=== PATIENT | female | born 1940 | race Caucasian/White ===

== ENCOUNTER 2017-10-09 20:18 | Emergency (ER) | payer MEDICARE ==
[~2017-10-09 20:18] MED LIST: ALLO300T2 PO; CARB-101 PO; HYDR25TA PO; LINA290C PO; LORA0.5T2 PO; LOSA100T29 PO; MECL-111 PO; METO25TA6 PO; QUET100T70 PO; ROPI1TAB11 PO; TRAZ-187 PO; TYL3 PO
[2017-10-09] MEDS ORDERED: ACETAMINOPHEN-CODEINE 300/30MG TAB ONE (20:59)
[2017-10-09] MEDS ORDERED: TETANUS/DIPHTHERIA TOXOID [ADULT] 0.5 ML VIAL IM ONE (20:59)
== END 2017-10-09 22:28 | disposition home or self-care (01) ==
LOC: EDH 20:18
DX: S50.02XA Contusion of left elbow, initial encounter (principal); I25.10 Atherosclerotic heart disease of native coronary artery without angina pectoris; G20 Parkinson's disease; I10 Essential (primary) hypertension; E78.5 Hyperlipidemia, unspecified; E11.9 Type 2 diabetes mellitus without complications; W10.8XXA Fall (on) (from) other stairs and steps, initial encounter; Y93.01 Activity, walking, marching and hiking; Y92.89 Other specified places as the place of occurrence of the external cause; Y99.8 Other external cause status
CPT/HCPCS: 73080; 90471; 90714

== ENCOUNTER → 2018-05-12 | Outpatient (CLI) | payer MEDICARE ==
[~2018-05-12] MED LIST changes: -LOSA100T29 PO; +LOSA100T58 PO
== END | disposition home or self-care (01) ==
LOC: RAH 16:03
PROVIDERS: ATTEND Internal Medicine
DX: M47.815 Spondylosis without myelopathy or radiculopathy, thoracolumbar region (principal); K59.00 Constipation, unspecified
CPT/HCPCS: 74018

== ENCOUNTER → 2018-09-02 | Outpatient (CLI) | payer MEDICARE | END | disposition home or self-care (01) | LOC: SHCH 13:04 | PROVIDERS: ATTEND Internal Medicine Cardiovascular Disease | DX: I65.23 Occlusion and stenosis of bilateral carotid arteries (principal); I51.7 Cardiomegaly; I35.8 Other nonrheumatic aortic valve disorders | CPT/HCPCS: 93306; 93880 ==

== ENCOUNTER → 2018-09-09 | Outpatient (CLI) | payer MEDICARE ==
[~2018-09-09] VITALS: Ht 152.4 cm; Wt 62.6 kg
[~2018-09-09] MED LIST changes: +REGADENOSON 0.4 MG/5 ML PF SYG IVP SCH
== END | disposition home or self-care (01) ==
LOC: SHCH 10:00
PROVIDERS: ATTEND Internal Medicine Cardiovascular Disease
DX: R06.00 Dyspnea, unspecified (principal); R07.89 Other chest pain
CPT/HCPCS: 78452; 93017; 96374; A9500 ×2; J2785

== ENCOUNTER → 2018-12-03 | Outpatient (CLI) | payer MEDICARE ==
[~2018-12-03] MED LIST changes: -REGADENOSON 0.4 MG/5 ML PF SYG IVP SCH
== END | disposition home or self-care (01) ==
LOC: RAH 11:12
PROVIDERS: ATTEND Psychiatry & Neurology Neurology
DX: G31.89 Other specified degenerative diseases of nervous system (principal); R90.82 White matter disease, unspecified
CPT/HCPCS: 70450

== ENCOUNTER 2019-12-10 23:30 | Inpatient (IN) | payer MEDICARE ==
[~2019-12-10 23:30] MED LIST changes: -MECL-111 PO; +MECL-160 PO; +QUET100T33 PO; -QUET100T70 PO; -ROPI1TAB11 PO; +ROPI1TAB13 PO
[2019-12-10] MEDS ORDERED: ONDANSETRON HCL 4 MG/2 ML VIAL ONE (23:44)
[2019-12-10] MEDS ORDERED: MORPHINE SULFATE 2 MG/ML 1ML SYG ONE (23:44)
[2019-12-11] MEDS ORDERED: MORPHINE SULFATE 4 MG/1ML SYG ONE ×2 (02:10→06:16)
[2019-12-11] MEDS ORDERED: ONDANSETRON HCL 4 MG/2 ML VIAL ONE (02:10)
[2019-12-11] MEDS ORDERED: FAMOTIDINE/PF 20 MG/2 ML VIAL IV ONE ×2 (02:10→09:32)
[2019-12-11] MEDS ORDERED: NITROGLYCERIN 0.4 MG SL TAB SL PRN (05:00)
[2019-12-11] MEDS ORDERED: MORPHINE SULFATE 4 MG/1ML SYG IV PRN (05:00)
[2019-12-11] MEDS ORDERED: MAG HYDROX/AL HYDROX/SIMETH 30 ML, LIDOCAINE HCL 2% VISCOUS 30 ML, DIPHENHYDRAMINE HCL ... PO PRN ×3 (05:00)
[2019-12-11] MEDS ORDERED: DIPHENHYDRAMINE HCL 25 MG CAPSULE PO PRN (05:00)
[2019-12-11] MEDS ORDERED: GUAIFENESIN-DM 200/20 MG 10 ML PO PRN (05:00)
[2019-12-11] MEDS ORDERED: ACETAMINOPHEN 325 MG TAB PO PRN ×2 (05:00)
[2019-12-11] MEDS ORDERED: ZOLPIDEM TARTRATE 5 MG TAB PO PRN (05:00)
[2019-12-11] MEDS ORDERED: DiphenhydrAMINE HCL 50 MG/ML VIAL IV PRN (05:00)
[2019-12-11] MEDS ORDERED: MAG HYDROX/AL HYDROX/SIMETH ES 30 ML SUSP UDCUP PO PRN (05:00)
[2019-12-11] MEDS ORDERED: LACTULOSE 20 GM/30 ML UDCUP PO PRN (05:00)
[2019-12-11] MEDS ORDERED: MORPHINE SULFATE 2 MG/ML 1ML SYG IV PRN (05:00)
[2019-12-11] MEDS: INSULIN HUMULIN R 100 UNIT/ML 3ML SQ SCH ×4 (07:30→22:26)
[2019-12-11] MEDS: FAMOTIDINE/PF 20 MG/2 ML VIAL IV SCH (09:00)
[2019-12-11] MEDS ORDERED: ACETAMINOPHEN 325 MG TAB ONE (10:41)
[2019-12-11 11:14] LABS: ALBUMIN 3.4 g/dL (3.5-5.0); BILIRUBIN,TOTAL 0.6 mg/dL (0.2-1.0); CREATININE 0.9 mg/dL (0.5-1.5); POTASSIUM 4.5 mmol/L (3.5-5.1); THYROID STIMULATING HORMONE 6.22 uIU/mL (0.36-3.74); TOTAL PROTEIN, SERUM 6.8 g/dL (6.0-8.3)
[2019-12-11] MEDS ORDERED: PROM12.513 PO (12:53)
[2019-12-11] MEDS ORDERED: CARB1TAB20 PO (12:53)
[2019-12-11] MEDS ORDERED: ZONI25CA14 PO (12:53)
[2019-12-11] MEDS ORDERED: ARIP2TAB20 PO (12:53)
[2019-12-11] MEDS ORDERED: TRAZODONE PO (12:53)
[2019-12-11] MEDS ORDERED: FAMO20TA8 PO (12:53)
--- NOTE | 2019-12-11 13:05 | NUR ---
patient still in ER, awaiting for patient to be transferred to medical floor in order to be able to initiate skilled Physical Therapy Evaluation. Addendum: 12/11/19 at 1306 by DONOVAN GARCIA, PT PT Amended: Links added.
--- NOTE | 2019-12-11 15:40 | NUR ---
cm note call made to patient and no answer. call made to spouse and states resides at home with spouse independent with ambulation and adls. no dme. no home services. informed of md request for snf level of care for rehab, and states that he isnt sure she will agree to snf, but did provide alternate phone # for pt [phone]. cell phone, and should be turning it on soon since he just brought it to her at hospital. will followup with pt. Addendum: 12/11/19 at 1545 by KEMI MC CM Amended: Links added.
[2019-12-11] MEDS: CARBIDOPA-LEVODOPA 25-100 TAB PO SCH ×2 (17:00→21:33)
[2019-12-11 22:01] VITALS: BP 159/76
[2019-12-11] MEDS: METOPROLOL TARTRATE 25 MG TAB PO SCH (22:12)
[2019-12-11] MEDS: HYDROCODONE/ACETAMINOPHEN 5/325 MG TAB PO PRN (22:12)
--- NOTE | 2019-12-11 22:30 | NUR ---
2132 LEFT PATIENT DOOR OPEN TO CLOSELY MONITOR PATIENT. PATIENT STARTED SHAKING AND HAVING ANXIETY STATING SHE GET ANXIOUS BECAUSE SHE HAD NOT RECEIVED HER PILLS FOR THE DAY. EXPLAINED TO PATIENT I HAD HER NIGHT MEDICATIONS WHICH INCLUDED HER SINEMET AND HER BLOOD PRESSURE MEDICATION. SHE STATED SHE ONLY HAD HER SINEMET TWICE TODAY AND THAT SHE NORMALLY TAKES IT AT 9PM ON THE DOT AND GOES TO SLEEP AND WAS WHY SHE WAS SHAKY. THIS NURSE DID EXPLAIN TO HER THAT SHE HAD GOTTEN HER LAST SINEMET AROUND 5PM. PATIENT STATED SHE WAS HAVING SOME PAIN AND DID GIVE HER NORCO AT 2212.
[2019-12-12 00:50] VITALS: BP 157/69
[2019-12-12 04:00] VITALS: BP 165/72
--- NOTE | 2019-12-12 04:49 | NUR ---
PATIENT CALLED OUT STATING HER CATHETER WAS LEAKING. PRINT COLOR MATCHER CHECKED CATHETER AND EXPLAINED THAT IT WAS DRY AND THE CATHETER WAS DRAINING. PATIENT GOT INCREASINGLY UPSET STATING THAT "SHE KNOWS SOMEONE THAT WORKS HERE AND IS GOING TO SAY SOMETHING" SHE ALSO STATED THAT SHE HEARD STAFF SAY THAT SHE "WAS A LIAR". PRINT COLOR MATCHER CLEANED HER UP AND CHANGED BED PAD FOR COMFORT TWO TIMES. PATIENT IS STILL AGGRAVATED AT THIS TIME ALSO STATING THIS NURSE "HAS ONLY BEEN IN ONCE TO SEE HER". WILL TRY TO TALK PATIENT AND SEE IF THERE IS ANYTHING I CAN DO TO COMFORT HER.
[2019-12-12] MEDS ORDERED: METO-391 PO (05:38)
[2019-12-12] MEDS ORDERED: VENL-63 PO (05:38)
[2019-12-12] MEDS: INSULIN HUMULIN R 100 UNIT/ML 3ML SQ SCH ×4 (05:45→20:54)
[2019-12-12] MEDS: HYDROCODONE/ACETAMINOPHEN 5/325 MG TAB PO PRN ×3 (05:45→20:53)
--- NOTE | 2019-12-12 06:15 | NUR ---
SPOKE TO PATIENTS WHO CALLED AND STATED THAT HIS WAS UPSET ABOUT THE CATHETER. EXPLAINED TO THAT THE CATHETER WAS INTACT AND DRAINING CLEAR AND OF ADEQUATE AMOUNT. ALSO EXPLAINED THAT THE INTERNET MARKETER DID CHANGE HER BEDPAD TWICE AND THAT IT WAS DRY. THIS NURSE DID GIVE PAIN MEDICATION TO PATIENT AT 545AM FOR A HEADACHE AND PELVIC PAIN. THIS NURSE ALSO DID GIVE ZOFRAN FOR SOME NAUSEA AROUND 0615 PER PATIENT REQUEST. PATIENT DID APOLOGIZE AND STATED SHE "WAS SORRY IF SHE WAS OUT OF LINE AND US NURSES ARE DOING A GREAT JOB". I DID TALK TO PATIENT AND STATE IF THERE WAS ANYTHING ELSE I COULD DO LET ME KNOW.
[2019-12-12] MEDS: ONDANSETRON HCL 4 MG/2 ML VIAL IV PRN ×2 (06:16→13:21)
[2019-12-12 06:32] LABS: BASOPHILS % (AUTO) 0.5 % (0.0-5.0); EOSINOPHILS % (AUTO) 3.5 % (0.0-8.0); LYMPHOCYTES % (AUTO) 18.5 % (21.0-51.0); MEAN CORPUSCULAR HEMOGLOBIN 29.1 pg (27.0-33.0); MEAN CORPUSCULAR HGB CONC 33.1 g/dL (32.0-36.0); MEAN CORPUSCULAR VOLUME 88.1 fL (79-99); MONOCYTES % (AUTO) 11.2 % (3.0-13.0); NEUTROPHILS % (AUTO) 65.9 % (40.0-77.0); PLATELET COUNT (AUTO) 335 K/uL (130-400); RED BLOOD CELL COUNT(AUTO) 4.77 MIL/uL (4.00-5.50); WHITE BLOOD COUNT (AUTO) 8.3 K/uL (4.8-10.8)
[2019-12-12 07:09] LABS: ALBUMIN 3.3 g/dL (3.5-5.0); BILIRUBIN,TOTAL 0.9 mg/dL (0.2-1.0); CREATININE 0.8 mg/dL (0.5-1.5); POTASSIUM 3.2 mmol/L (3.5-5.1); THYROID STIMULATING HORMONE 3.35 uIU/mL (0.36-3.74); TOTAL PROTEIN, SERUM 6.9 g/dL (6.0-8.3)
[2019-12-12 08:00] VITALS: BP 152/70
[2019-12-12] MEDS: LOSARTAN 100 MG TABLET PO SCH (08:54)
[2019-12-12] MEDS: METOPROLOL TARTRATE 25 MG TAB PO SCH ×2 (08:54→20:53)
[2019-12-12] MEDS: FAMOTIDINE/PF 20 MG/2 ML VIAL IV SCH (08:54)
[2019-12-12] MEDS: CARBIDOPA-LEVODOPA 25-100 TAB PO SCH ×4 (08:54→20:53)
[2019-12-12] MEDS: HYDROCHLOROTHIAZIDE 25 MG TABLET PO SCH (08:54)
[2019-12-12] MEDS: ZONISAMIDE 25 MG PO SCH ×2 (09:00→20:54)
[2019-12-12] MEDS: LORAZEPAM 0.5 MG TABLET PO SCH ×4 (09:00→21:18)
[2019-12-12] MEDS ORDERED: LORAZEPAM 0.5 MG TABLET ONE (09:35)
[2019-12-12 11:26] VITALS: BP 163/90
--- NOTE | 2019-12-12 12:37 | NUR ---
Pt WITH EXTENSIVE ORTHO HX B ESEQUIEL, R SHOULDER SURGERY, LUMBAR FUSION. FALLS AND PD. PT LIVES WITH SPOUSE WHO IS UNABLE TO ASSIST. Pt HAS NEW NON DISPLACED PUBIC RAMI FRACTURE. HIP AND SHOULDERS ARE FRACTURE FREE AND ALL HARDWARE IS IN PLACE PER IMAGING. PT 3WW ROLLATOR AT HOME AND OLD BSC. Pt WILL NEED 2WW, HHPT OR SNF, AND 3-1. Pt ISWBAT TO [facility] . PRE MED PRIOR TO SESSION. HAS RESTING TREMORS BUT IS AOX3. Addendum: 12/12/19 at 1239 by SANDRO MCKEON, PT PT Amended: Links added.
--- NOTE | 2019-12-12 15:24 | NUR ---
CM NOTE spoke to pt regarding snf order and states she wishes to discuss with her spouse may want just HH and will let cm know of her decision,
[2019-12-12 16:00] VITALS: BP 166/89
--- NOTE | 2019-12-12 16:15 | NUR ---
cm note spoke to pt's spouse as per pt request regarding her dc plan, call made to pts spouse and states that after speaking to his , they have decided to go to [facility], due to it is closer to their home. choice letter obtained and referral faxed to [facility]. spoke to Sara pro and states will evaluate pt and let cm know. updated charge nurse on above and need for covid test per [facility] front desk receptionist.
[2019-12-12] MEDS: ARIPIPRAZOLE 2 MG PO SCH (20:53)
[2019-12-12 21:20] VITALS: BP 188/95
[2019-12-13] MEDS ORDERED: HYDRALAZINE HCL 20 MG/ML VIAL IV PRN (00:15)
[2019-12-13 00:22] VITALS: BP 174/99
[2019-12-13] MEDS: HYDROCODONE/ACETAMINOPHEN 5/325 MG TAB PO PRN (02:49)
[2019-12-13 04:09] VITALS: BP 155/85
[2019-12-13] MEDS: ONDANSETRON HCL 4 MG/2 ML VIAL IV PRN ×2 (05:40→08:52)
[2019-12-13] MEDS: INSULIN HUMULIN R 100 UNIT/ML 3ML SQ SCH ×4 (05:41→20:39)
[2019-12-13 06:20] LABS: BASOPHILS % (AUTO) 0.4 % (0.0-5.0); EOSINOPHILS % (AUTO) 3.1 % (0.0-8.0); HEMATOCRIT 46.4 % (36-48); LYMPHOCYTES % (AUTO) 20.3 % (21.0-51.0); MEAN CORPUSCULAR HEMOGLOBIN 28.7 pg (27.0-33.0); MEAN CORPUSCULAR HGB CONC 33.4 g/dL (32.0-36.0); MEAN CORPUSCULAR VOLUME 85.8 fL (79-99); MONOCYTES % (AUTO) 11.7 % (3.0-13.0); PLATELET COUNT (AUTO) 409 K/uL (130-400); RED BLOOD CELL COUNT(AUTO) 5.41 MIL/uL (4.00-5.50); RED CELL DISTRIBUTION WIDTH 13.1 % (11.0-15.5); WHITE BLOOD COUNT (AUTO) 12.1 K/uL (4.8-10.8)
[2019-12-13 06:42] LABS: HEMOGLOBIN A1C 7.1 % (4.0-6.0)
[2019-12-13 07:02] LABS: ALBUMIN 3.8 g/dL (3.5-5.0); POTASSIUM 3.1 mmol/L (3.5-5.1); TOTAL PROTEIN, SERUM 7.8 g/dL (6.0-8.3)
[2019-12-13] MEDS ORDERED: LORAZEPAM 2 MG/ML 1 ML VIAL ONE (08:46)
[2019-12-13] MEDS: METOPROLOL TARTRATE 25 MG TAB PO SCH ×2 (08:50→19:47)
[2019-12-13] MEDS: LOSARTAN 100 MG TABLET PO SCH (09:00)
[2019-12-13] MEDS: LORAZEPAM 0.5 MG TABLET PO SCH ×3 (09:00→19:47)
[2019-12-13] MEDS ORDERED: LIDOCAINE HCL-MPF 1% 2ML VIAL IV PRN (09:30)
[2019-12-13] MEDS ORDERED: POTASSIUM CHLORIDE 20 MEQ ERTAB PO PRN (09:30)
[2019-12-13] MEDS ORDERED: POTASSIUM CHLORIDE 10% ELIXIR 20 MEQ/15 ML UDCUP PO PRN (09:30)
[2019-12-13] MEDS ORDERED: POTASSIUM CHLORIDE 10MEQ/100ML 100 ML IV PRN (09:30)
[2019-12-13] MEDS: FAMOTIDINE/PF 20 MG/2 ML VIAL IV SCH (10:08)
[2019-12-13] MEDS: CARBIDOPA-LEVODOPA 25-100 TAB PO SCH ×4 (10:08→19:47)
[2019-12-13] MEDS: HYDROCHLOROTHIAZIDE 25 MG TABLET PO SCH (10:08)
[2019-12-13] MEDS: ZONISAMIDE 25 MG PO SCH ×2 (10:10→19:48)
[2019-12-13 11:11] LABS: CRP QUANTITATIVE 61.9 mg/L (0.00-9.0)
[2019-12-13 11:30] VITALS: BP 114/46
--- NOTE | 2019-12-13 14:58 | NUR ---
BP control @ 8726-1170 Tech unable to obtain bp by machine, manual cuff performed. See mar for additional meds given. Monitored for safety & efficacy, LINE HAUL DRIVER entered room for moment & let know of patient status, new med ordered & given 0820-240/120 r 115 0830-hydralazine 10mg given 0835- 230/110 0855-ativan 1mg iv, zofran 4mg iv 0900-99/56 p 104 0950 114/46 p 115 94 ra 1400 119/75 p 100 98 ra
[2019-12-13 15:52] VITALS: BP 114/76
[2019-12-13] MEDS: ARIPIPRAZOLE 2 MG PO SCH (19:48)
[2019-12-13 20:00] VITALS: BP 119/64
[2019-12-14] VITALS: BP 114/68
[2019-12-14] MEDS: LORAZEPAM 0.5 MG TABLET PO SCH ×2 (03:43→08:55)
[2019-12-14 04:00] VITALS: BP 121/54
[2019-12-14] MEDS: INSULIN HUMULIN R 100 UNIT/ML 3ML SQ SCH ×2 (06:06→11:30)
[2019-12-14] MEDS: HYDROCODONE/ACETAMINOPHEN 5/325 MG TAB PO PRN ×2 (06:11→06:53)
[2019-12-14 06:31] LABS: BASOPHILS % (AUTO) 0.4 % (0.0-5.0); EOSINOPHILS % (AUTO) 4.2 % (0.0-8.0); HEMATOCRIT 48.2 % (36-48); LYMPHOCYTES % (AUTO) 24.8 % (21.0-51.0); MEAN CORPUSCULAR HEMOGLOBIN 29.2 pg (27.0-33.0); MEAN CORPUSCULAR HGB CONC 33.6 g/dL (32.0-36.0); MONOCYTES % (AUTO) 11.8 % (3.0-13.0); NEUTROPHILS % (AUTO) 58.3 % (40.0-77.0); PLATELET COUNT (AUTO) 226 K/uL (130-400); RED BLOOD CELL COUNT(AUTO) 5.54 MIL/uL (4.00-5.50); RED CELL DISTRIBUTION WIDTH 13.2 % (11.0-15.5); WHITE BLOOD COUNT (AUTO) 7.5 K/uL (4.8-10.8)
[2019-12-14 06:41] LABS: ALBUMIN 3.5 g/dL (3.5-5.0); BILIRUBIN,TOTAL 1.5 mg/dL (0.2-1.0); CREATININE 1.1 mg/dL (0.5-1.5); TOTAL PROTEIN, SERUM 7.5 g/dL (6.0-8.3)
[2019-12-14 08:00] VITALS: BP 107/66
[2019-12-14] MEDS: CARBIDOPA-LEVODOPA 25-100 TAB PO SCH ×2 (08:55→13:50)
[2019-12-14] MEDS: LOSARTAN 100 MG TABLET PO SCH (08:55)
[2019-12-14] MEDS: METOPROLOL TARTRATE 25 MG TAB PO SCH (08:55)
[2019-12-14] MEDS: HYDROCHLOROTHIAZIDE 25 MG TABLET PO SCH (08:55)
[2019-12-14] MEDS: FAMOTIDINE/PF 20 MG/2 ML VIAL IV SCH (08:55)
[2019-12-14] MEDS: ZONISAMIDE 25 MG PO SCH (09:04)
--- NOTE | 2019-12-14 11:08 | NUR ---
Report given to Alvaro PENA
[2019-12-14 11:13] VITALS: BP 119/60
--- NOTE | 2019-12-14 12:03 | NUR ---
cm note faxed Covid form and Covid negative results and spoke to Jayla from [facility] [phone] states pt is accepted, this CM spoke to Carrie Anders, and states pt is ok to go via van transport to snf, updated primary nurse Kaden.
--- NOTE | 2019-12-14 14:53 | NUR ---
Pt discharge instructions given and explained to patient. pt verbalized understanding. IV removed ,fishman removed. No complaints offered. Riky matamoros picked up pt in Van.
== END 2019-12-14 14:52 | DRG 536 ==
LOC: EDH 23:30 → EDHIP 12-11 04:59 → 4CH 12-11 19:23 → 4BH 12-13 07:55
PROVIDERS: ADMIT Internal Medicine; ATTEND Internal Medicine
DX: S32.501A Unspecified fracture of right pubis, initial encounter for closed fracture (principal); M19.011 Primary osteoarthritis, right shoulder; E11.9 Type 2 diabetes mellitus without complications; G20 Parkinson's disease; Z96.643 Presence of artificial hip joint, bilateral; I25.10 Atherosclerotic heart disease of native coronary artery without angina pectoris; Z79.84 Long term (current) use of oral hypoglycemic drugs; I10 Essential (primary) hypertension; F41.9 Anxiety disorder, unspecified; W01.0XXA Fall on same level from slipping, tripping and stumbling without subsequent striking against object, initial encounter; Y93.89 Activity, other specified; Y99.8 Other external cause status; Y92.009 Unspecified place in unspecified non-institutional (private) residence as the place of occurrence of the external cause; Z20.828 Contact with and (suspected) exposure to other viral communicable diseases
CPT/HCPCS: 36415; 72192; 73030; 73200; 73502; 80053; 82728; 82948; 83036; 83615; 84145; 84443; 85025; 85378; 86140; 87426; 97039; G0378; J0360; J1815; J2060; J2270; J2405; J3490; U0003

== ENCOUNTER → 2020-04-07 | Outpatient (CLI) | payer MEDICARE ==
[~2020-04-07] MED LIST changes: -ALLO300T2 PO; +ARIP2TAB20 PO; -CARB-101 PO; +CARB1TAB20 PO; +FAMO20TA8 PO; +GADODIAMIDE 10 MMOL/20 ML VIAL IV ONE; -LINA290C PO; -MECL-160 PO; +METO-391 PO; -METO25TA6 PO; +PROM12.513 PO; -QUET100T33 PO; -ROPI1TAB13 PO; -TRAZ-187 PO; +TRAZODONE PO; -TYL3 PO; +VENL-63 PO; +ZONI25CA14 PO
== END | disposition home or self-care (01) ==
LOC: RAH 14:34
PROVIDERS: ATTEND Internal Medicine
DX: M51.16 Intervertebral disc disorders with radiculopathy, lumbar region (principal); M48.061 Spinal stenosis, lumbar region without neurogenic claudication
CPT/HCPCS: 72158; A9579

== ENCOUNTER 2020-07-21 05:42 | Day surgery (SDC) | payer MEDICARE ==
[2020-07-20 09:29] VITALS: BP 206/99
[~2020-07-21] VITALS: Ht 152.4 cm; Wt 68.5 kg
[2020-07-21] VITALS (11 sets, daily range): BP systolic 119–155; BP diastolic 51–76
[~2020-07-21 05:42] MED LIST changes: +AMLO2.5T4 PO; -ARIP2TAB20 PO; +ARIP5TAB56 PO; -FAMO20TA8 PO; -GADODIAMIDE 10 MMOL/20 ML VIAL IV ONE; -HYDR25TA PO; -PROM12.513 PO
[2020-07-21] MEDS ORDERED: SODIUM CHLORIDE 0.9% 1000ML 1,000 ML IV ONE (06:12)
[2020-07-21] MEDS ORDERED: BUPIVACAINE/PF 0.25% 10ML VIAL IJ ONE (06:57)
[2020-07-21] MEDS ORDERED: SODIUM BICARB [NEONATAL] 4.2% 10ML SYG ONE (06:57)
[2020-07-21] MEDS ORDERED: LIDOCAINE HCL 1% 20 ML VIAL ONE (06:58)
[2020-07-21] MEDS ORDERED: MIDAZOLAM HCL 1 MG/ML 2ML VIAL ONE (07:13)
[2020-07-21] MEDS ORDERED: PROPOFOL 10 MG/ML 20ML VIAL IV ONE (07:13)
[2020-07-21] MEDS ORDERED: LIDOCAINE PF 2% 5ML ABBOJECT ONE (07:13)
[2020-07-21] MEDS ORDERED: DEXAMETHASONE SOD PHOSPHATE 10MG/ML 1ML VIAL ONE ×2 (07:13→07:15)
[2020-07-21] MEDS ORDERED: MEPERIDINE-PF 25 MG/ML SYG ONE (07:14)
[2020-07-21] MEDS ORDERED: ONDANSETRON HCL 4 MG/2 ML VIAL ONE (07:14)
[2020-07-21] MEDS ORDERED: FENTANYL CITRATE PF 50 MCG/1 ML 2ML VIAL ONE (07:14)
[2020-07-21] MEDS ORDERED: ISOVUE-M 200 20 ML VIAL IT ONE (07:31)
[2020-07-21] MEDS ORDERED: IOPAMIDOL 10 ML VIAL ONE (07:33)
[2020-07-21] MEDS ORDERED: GLYCOPYRROLATE 1 MG/5 ML SYRINGE ONE (07:42)
[2020-07-21] MEDS ORDERED: BUPIVACAINE/PF 0.25% 30ML VIAL IJ ONE (07:45)
== END 2020-07-21 09:36 | disposition home or self-care (01) ==
LOC: DAH 05:42
PROVIDERS: ATTEND Neurological Surgery
DX: M53.3 Sacrococcygeal disorders, not elsewhere classified (principal); I10 Essential (primary) hypertension; K21.9 Gastro-esophageal reflux disease without esophagitis; I25.10 Atherosclerotic heart disease of native coronary artery without angina pectoris; E11.9 Type 2 diabetes mellitus without complications; G20 Parkinson's disease; Z20.828 Contact with and (suspected) exposure to other viral communicable diseases
CPT/HCPCS: 72202; 82948 ×2; 93005; A4215 ×2; A4216; A4221; A4222; A4223 ×2; A4600; A4663; A6260; C9803; G0260; J1030 ×2; J1100 ×2; J2001; J2175; J2250; J2405; J2704; J3010; J3490 ×4; J7030; Q9966; U0003

== ENCOUNTER → 2020-09-02 | Outpatient (CLI) | payer MEDICARE | END | disposition home or self-care (01) | LOC: SHCH 11:40 | PROVIDERS: ATTEND Internal Medicine Cardiovascular Disease | DX: R01.1 Cardiac murmur, unspecified (principal) | CPT/HCPCS: 93306; 93356 ==

== ENCOUNTER → 2020-09-22 | Outpatient (CLI) | payer MEDICARE | END | disposition home or self-care (01) | LOC: SHCH 09:15 | PROVIDERS: ATTEND Internal Medicine Cardiovascular Disease | DX: I65.23 Occlusion and stenosis of bilateral carotid arteries (principal); R09.89 Other specified symptoms and signs involving the circulatory and respiratory systems | CPT/HCPCS: 93880 ==

== ENCOUNTER → 2020-10-27 | Outpatient (CLI) | payer MEDICARE | END | disposition home or self-care (01) | LOC: SHCH 11:35 | PROVIDERS: ATTEND Internal Medicine Cardiovascular Disease | DX: I35.0 Nonrheumatic aortic (valve) stenosis (principal) | CPT/HCPCS: 93925 ==

== ENCOUNTER → 2022-01-15 | Outpatient (CLI) | payer MEDICARE ==
[~2022-01-15] VITALS: Ht 152.4 cm; Wt 59.0 kg
[~2022-01-15] MED LIST changes: -CARB1TAB20 PO; +CARB1TAB35 PO; +REGADENOSON 0.4 MG/5 ML PF SYG IVP SCH
== END | disposition home or self-care (01) ==
LOC: OIH 08:28
PROVIDERS: ATTEND Internal Medicine Cardiovascular Disease
DX: R06.02 Shortness of breath (principal); R53.83 Other fatigue; I10 Essential (primary) hypertension; E78.5 Hyperlipidemia, unspecified; G20 Parkinson's disease; K21.9 Gastro-esophageal reflux disease without esophagitis; K22.70 Barrett's esophagus without dysplasia; Z95.5 Presence of coronary angioplasty implant and graft; Z79.899 Other long term (current) drug therapy
CPT/HCPCS: 78452; 96374; 93017; J2785; A9500 ×2

== ENCOUNTER 2022-02-02 17:23 | Emergency (ER) | payer MEDICARE ==
[~2022-02-02] VITALS: Ht 152.4 cm; Wt 59.0 kg
[~2022-02-02 17:23] MED LIST changes: -REGADENOSON 0.4 MG/5 ML PF SYG IVP SCH
[2022-02-02] MEDS: KETOROLAC 15MG/ML VIAL (15MG/ML) IV ONE (19:58)
[2022-02-02] MEDS ORDERED: ACET-66 PO (20:42)
[2022-02-02 20:52] VITALS: BP 154/78
== END 2022-02-02 20:53 | disposition home or self-care (01) ==
LOC: EDH 17:23
DX: R07.81 Pleurodynia (principal); R07.89 Other chest pain; E11.9 Type 2 diabetes mellitus without complications; E78.00 Pure hypercholesterolemia, unspecified; I10 Essential (primary) hypertension; G20 Parkinson's disease; Z79.1 Long term (current) use of non-steroidal anti-inflammatories (NSAID); Z90.49 Acquired absence of other specified parts of digestive tract; W18.39XA Other fall on same level, initial encounter; Y93.89 Activity, other specified; Y92.89 Other specified places as the place of occurrence of the external cause; Y99.8 Other external cause status
CPT/HCPCS: 99285; 96374; 71045; 82550; 83874; 84484; 36415; 71101; 93005; J1885

== ENCOUNTER → 2022-10-10 | Outpatient (CLI) | payer MEDICARE ==
[~2022-10-10] MED LIST changes: -ARIP5TAB56 PO; +ASPI-1197 PO; +EZET10TA48 PO; +FAMO20TA8 PO; -LORA0.5T2 PO; -LOSA100T58 PO; -METO-391 PO; +METO-408 PO; +NITR0.4T50 SL; +PANT40TA54 PO; +ROTI1PAT10 TD; -TRAZODONE PO; -VENL-63 PO
== END | disposition home or self-care (01) ==
LOC: RAH 11:31
PROVIDERS: ATTEND Internal Medicine
DX: S06.2XAA Diffuse traumatic brain injury with loss of consciousness status unknown, initial encounter (principal); S06.5X0A Traumatic subdural hemorrhage without loss of consciousness, initial encounter; G31.9 Degenerative disease of nervous system, unspecified; X58.XXXA Exposure to other specified factors, initial encounter; Y93.89 Activity, other specified; Y92.89 Other specified places as the place of occurrence of the external cause; Y99.8 Other external cause status
CPT/HCPCS: 70450

== ENCOUNTER → 2023-03-28 | Outpatient (CLI) | payer MEDICARE ==
[2023-03-28 16:19] LABS: BASOPHILS # (AUTO) 0.08 K/uL (0.00-0.20); BASOPHILS % (AUTO) 0.9 % (0.0-5.0); EOSINOPHILS # (AUTO) 0.47 K/uL (0.00-0.70); EOSINOPHILS % (AUTO) 5.3 % (0.0-8.0); IMMATURE GRANULOCYTE ABSOLUTE 0.06 K/uL (0-1); LYMPHOCYTES # (AUTO) 2.4 K/uL (1.0-4.8); LYMPHOCYTES % (AUTO) 26.4 % (21.0-51.0); MEAN CORPUSCULAR HEMOGLOBIN 29.5 pg (27.0-33.0); MEAN CORPUSCULAR HGB CONC 31.3 g/dL (32.0-36.0); MEAN CORPUSCULAR VOLUME 94.1 fL (79-99); MONOCYTES # (AUTO) 0.9 K/uL (0.1-1.0); MONOCYTES % (AUTO) 9.6 % (3.0-13.0); NEUTROPHILS # (AUTO) 5.1 K/uL (1.8-7.7); NEUTROPHILS % (AUTO) 57.1 % (40.0-77.0); PLATELET COUNT (AUTO) 447 K/uL (130-400); RED BLOOD CELL COUNT(AUTO) 4.04 MIL/uL (4.00-5.50); RED CELL DISTRIBUTION WIDTH 13.8 % (11.0-15.5); WHITE BLOOD COUNT (AUTO) 8.9 K/uL (4.8-10.8)
[2023-03-28 16:41] LABS: ALBUMIN 3.4 g/dL (3.5-5.0); ASPARTATE AMINOTRANSFERASE 22 U/L (10-37); BILIRUBIN,TOTAL 0.4 mg/dL (0.2-1.0); CARBON DIOXIDE 28 mmol/L (21-32); CHLORIDE 104 mmol/L (101-111); CREATININE 0.8 mg/dL (0.5-1.5); GLOMERULAR FILTR. RATE CALC 74 mL/min (>90); GLUCOSE,RANDOM 76 mg/dL (70-105); POTASSIUM 4.6 mmol/L (3.5-5.1); SODIUM SERUM 140 mmol/L (136-145); TOTAL PROTEIN, SERUM 7.7 g/dL (6.0-8.3); UREA NITROGEN, BLOOD 14 mg/dL (7-18)
[2023-03-28 16:57] LABS: ALANINE AMINOTRANSFERASE < 6 U/L (12-78)
== END | disposition home or self-care (01) ==
LOC: LAB 13:19
PROVIDERS: ATTEND Internal Medicine Cardiovascular Disease
DX: E78.5 Hyperlipidemia, unspecified (principal); I25.10 Atherosclerotic heart disease of native coronary artery without angina pectoris
CPT/HCPCS: 36415; 80053; 83735; 83880; 85025

== ENCOUNTER → 2023-04-08 | Outpatient (CLI) | payer MEDICARE | END | disposition home or self-care (01) | LOC: SHCH 12:29 | PROVIDERS: ATTEND Internal Medicine Cardiovascular Disease | DX: I08.0 Rheumatic disorders of both mitral and aortic valves (principal); I11.9 Hypertensive heart disease without heart failure; E78.5 Hyperlipidemia, unspecified; Z95.2 Presence of prosthetic heart valve | CPT/HCPCS: 93306 ==

== ENCOUNTER → 2023-08-06 | Outpatient (CLI) | payer MEDICARE | END | disposition home or self-care (01) | LOC: SHCH 10:51 | PROVIDERS: ATTEND Internal Medicine Cardiovascular Disease | DX: I65.23 Occlusion and stenosis of bilateral carotid arteries (principal); I35.0 Nonrheumatic aortic (valve) stenosis; I25.10 Atherosclerotic heart disease of native coronary artery without angina pectoris; E78.5 Hyperlipidemia, unspecified; I11.9 Hypertensive heart disease without heart failure | CPT/HCPCS: 93306; 93880 ==

== ENCOUNTER 2023-09-26 06:49 | Emergency (ER) | payer MEDICARE ==
[~2023-09-26] VITALS: Ht 152.4 cm; Wt 59.0 kg
[2023-09-26 08:41] LABS: EOSINOPHILS # (AUTO) 0.42 K/uL (0.00-0.70); EOSINOPHILS % (AUTO) 4.2 % (0.0-8.0); HEMATOCRIT 40.7 % (36-48); IMMATURE GRANULOCYTE ABSOLUTE 0.05 K/uL (0-1); LYMPHOCYTES # (AUTO) 2.2 K/uL (1.0-4.8); LYMPHOCYTES % (AUTO) 21.8 % (21.0-51.0); MEAN CORPUSCULAR HEMOGLOBIN 29.1 pg (27.0-33.0); MEAN CORPUSCULAR HGB CONC 33.2 g/dL (32.0-36.0); MEAN CORPUSCULAR VOLUME 87.7 fL (79-99); MONOCYTES % (AUTO) 10.4 % (3.0-13.0); NEUTROPHILS # (AUTO) 6.2 K/uL (1.8-7.7); NEUTROPHILS % (AUTO) 62.1 % (40.0-77.0); PLATELET COUNT (AUTO) 351 K/uL (130-400); RED BLOOD CELL COUNT(AUTO) 4.64 MIL/uL (4.00-5.50); RED CELL DISTRIBUTION WIDTH 14.8 % (11.0-15.5); WHITE BLOOD COUNT (AUTO) 9.9 K/uL (4.8-10.8)
[2023-09-26] MEDS: LIDOCAINE 1%-EPI 1:100,000 20 ML VIAL ONE (08:53)
[2023-09-26 09:03] LABS: CARBON DIOXIDE 27 mmol/L (21-32); CHLORIDE 103 mmol/L (101-111); CREATININE 1.3 mg/dL (0.5-1.0); GLOMERULAR FILTR. RATE CALC 42 mL/min (>90); GLUCOSE,RANDOM 167 mg/dL (70-105); POTASSIUM 3.5 mmol/L (3.5-5.1); SODIUM SERUM 139 mmol/L (136-145); UREA NITROGEN, BLOOD 26 mg/dL (7-18)
[2023-09-26 09:08] LABS: ALBUMIN 3.5 g/dL (3.5-5.0); ASPARTATE AMINOTRANSFERASE 11 U/L (10-37); BILIRUBIN,TOTAL 0.5 mg/dL (0.2-1.0); TOTAL PROTEIN, SERUM 7.1 g/dL (6.0-8.3)
[2023-09-26 09:09] LABS: ALANINE AMINOTRANSFERASE < 6 U/L (12-78)
[2023-09-26 11:00] VITALS: BP 161/74; PULSE 64; RESP 16; O2SAT 96
== END 2023-09-26 11:12 | disposition home or self-care (01) ==
LOC: EDH 06:49
DX: S01.01XA Laceration without foreign body of scalp, initial encounter (principal); I10 Essential (primary) hypertension; E11.9 Type 2 diabetes mellitus without complications; E78.00 Pure hypercholesterolemia, unspecified; F41.9 Anxiety disorder, unspecified; Z79.82 Long term (current) use of aspirin; Z79.899 Other long term (current) drug therapy; Z90.710 Acquired absence of both cervix and uterus; Z98.890 Other specified postprocedural states; Z88.5 Allergy status to narcotic agent; W18.39XA Other fall on same level, initial encounter; Y93.01 Activity, walking, marching and hiking; Y92.89 Other specified places as the place of occurrence of the external cause; Y99.8 Other external cause status
CPT/HCPCS: 99284; 70450; 80053; 85025; 36415; 72125; 12001; J3490

== ENCOUNTER → 2024-02-11 | Outpatient (CLI) | payer MEDICARE | END | disposition home or self-care (01) | LOC: SHCH 11:36 | PROVIDERS: ATTEND Internal Medicine Cardiovascular Disease | DX: I08.8 Other rheumatic multiple valve diseases (principal); E78.5 Hyperlipidemia, unspecified; I11.9 Hypertensive heart disease without heart failure; Z95.1 Presence of aortocoronary bypass graft; Z95.3 Presence of xenogenic heart valve | CPT/HCPCS: 93306 ==

== ENCOUNTER 2024-05-10 10:34 | Emergency (ER) | payer MEDICARE ==
[~2024-05-10] VITALS: Ht 152.4 cm; Wt 63.5 kg
--- NOTE | 2024-05-10 12:05 | HMCIMG ---
ELBOW COMP 3+VWS LT INDICATION: pain TECHNIQUE: ELBOW COMP 3+VWS LT. FINDINGS/IMPRESSION: No displaced fracture or dislocation is seen. Correlate clinically. There is mild soft tissue swelling Small subcentimeter densities seen in the soft tissues of the posterior arm which may represent dystrophic calcifications versus foreign bodies. Correlate clinically. There is diffuse osteopenia limiting evaluation of the study.
--- NOTE | 2024-05-10 12:07 | HMCIMG ---
HIP UNILAT 2-3VW LEFT INDICATION: pain TECHNIQUE: HIP UNILAT 2-3VW LEFT. FINDINGS/IMPRESSION: No displaced fracture or dislocation is seen. Correlate clinically. There is no joint effusion or soft tissue swelling. Bilateral hip prosthesis in anatomic alignment. There is diffuse osteopenia limiting evaluation of the study.
[2024-05-10 13:05] VITALS: BP 173/99; PULSE 61; RESP 16; TEMP 98.7; O2SAT 97
--- NOTE | 2024-05-10 13:27 | ERN ---
General Chief Complaint: Hip Pain/Injury Stated Complaint: LT HIP PAIN Time Seen by MD: 10:39 Source: patient, EMS History of Present Illness Initial Comments Patient is a an 83-year-old female coming in to be evaluated for hip pain. Per patient she was walking earlier today slipped Allergies: Coded Allergies: No Known Drug Allergies (Verified Allergy, Unknown, 06/08/14) codeine (Unverified Allergy, Unknown, 02/17/22) Home Meds Reported Medications Amlodipine Besylate (Amlodipine Besylate) 2.5 Mg Tablet, 2.5 MG PO DAILY, TAB 09/27/22 Metoprolol Succinate (Metoprolol Succinate) 25 Mg Tab.er.24h, 25 MG PO HS, TAB 09/27/22 Zonisamide (Zonisamide) 25 Mg Capsule, 25 MG PO BID, CAP 09/27/22 Rotigotine (Neupro) 1 Each Patch.td24, 1 EACH TD DAILY 09/27/22 Nitroglycerin (Nitroglycerin) 0.4 Mg Tab.subl, 0.4 MG SL AD, TAB.SL 09/27/22 Pantoprazole Sodium (Pantoprazole Sodium) 40 Mg Tablet.dr, 40 MG PO DAILY, TAB 02/17/22 Famotidine (Famotidine) 20 Mg Tablet, 20 MG PO DAILY PRN for INDIGESTION, TAB 02/17/22 Ezetimibe (Ezetimibe) 10 Mg Tablet, 10 MG PO DAILY, TAB 02/17/22 Aspirin (Aspirin) 81 Mg Tab.chew, 81 MG PO DAILY, TAB.CHEW 02/17/22 Carbidopa/Levodopa (Carbidopa-Levodopa 25-100 Tab) 1 Each Tablet, 1 EACH PO QID, TAB 12/11/19 Past Medical History Past Medical History: Anxiety, Diabetes-Type II, High Cholesterol, Heart Disease, Hypertension, Other Medical History Other: [place] Past Surgical History: Hysterectomy, CABG, Other Surgical History Other: X3 CARDIAC STENTS Social History Social History: Negative, Lives with family Female( History) History: Not Applicable Results Laboratory and Microbiology Labs Reviewed?: Yes EKG/XRAY/US/CT/MRI X-RAY Comment [place] [address] [id number] IMAGING REPORT Signed PATIENT: SCOTT LARA MR#: [id number] : 1940 SEX: F AGE: 83 LOCATION: ED ORDER 44 STATUS: REG ER REPORT#: [id number] SERVICE 43 REASON: pain ORDERING PHYSICIAN: ALBERT ALCALA MD PROCEDURE: HIP U 2V L - HIP UNILAT 2-3VW LEFT HIP UNILAT 2-3VW LEFT INDICATION: pain TECHNIQUE: HIP UNILAT 2-3VW LEFT. FINDINGS/IMPRESSION: No displaced fracture or dislocation is seen. Correlate clinically. There is no joint effusion or soft tissue swelling. Bilateral hip prosthesis in anatomic alignment. There is diffuse osteopenia limiting evaluation of the study. DICTATED BY: DENNIS PEDRAZA MD DATE: 05/10/241202 ELECTRONICALLY SIGNED BY: DENNIS PEDRAZA MD DATE: 05/10/241206 [place] [address] IMAGING REPORT Signed PATIENT: SCOTT LARA MR#: [id number] : 1940 SEX: F AGE: 83 LOCATION: ED ORDER 44 STATUS: [facility] REPORT#: [id number] SERVICE 43 REASON: pain ORDERING PHYSICIAN: ALBERT ALCALA MD PROCEDURE: ELB3VW LT - ELBOW COMP 3+VWS LT ELBOW COMP 3+VWS LT INDICATION: pain TECHNIQUE: ELBOW COMP 3+VWS LT. FINDINGS/IMPRESSION: No displaced fracture or dislocation is seen. Correlate clinically. There is mild soft tissue swelling Small subcentimeter densities seen in the soft tissues of the posterior arm which may represent dystrophic calcifications versus foreign bodies. Correlate clinically. There is diffuse osteopenia limiting evaluation of the study. DICTATED BY: DENNIS PEDRAZA MD DATE: 05/10/241201 ELECTRONICALLY SIGNED BY: DENNIS PEDRAZA MD DATE: 05/10/241206 MDM MDM: Differential diagnosis: Fall, hip strain, hip pain Patient is a an 83-year-old female coming in to be evaluated after she states he fell down a week ago. She states that her hip was hurting earlier today so decided to come in for further evaluation. X-ray did not disclose acute findings. Patient does have prosthesis of bilateral hips. She was a states that she scraped her left elbow. Patient will be discharged with a diagnosis of hip strain and left elbows abrasion. Antibiotics will be provided. I advised her appropriate follow up with PCP in 1-2 days. ED Course Orders Procedure Category Date Status Time Hip Unilat 2-3vw Left RAD 05/10/24 Resulted 10:44 Elbow Comp 3+Vws Lt RAD 05/10/24 Resulted 10:44 Vital Signs Date Time Temp Pulse Resp B/P (MAP) Pulse Ox O2 Delivery O2 Flow Rate FiO2 05/10/24 13:05 98.8 61 16 173/99 97 Room Air* 0 21 05/10/24 10:35 98.4 62 16 197/72 97 Room Air DX & DISP Disposition: Discharge Departure Impression: Primary Impression: Strain of left hip Additional Impression: Abrasion of left elbow Condition: Stable Scripts Diclofenac Sodium (Voltaren Arthritis Pain) 1 % Gel..gram. 4 GM TP BID for 7 Days, #1 TUBE Prov: ALBERT ALCALA MD 05/10/24 Cephalexin Monohydrate (Keflex) 500 Mg Cap 1 CAP PO TID for 10 Days, #30 CAP 0 Refills Prov: ALBERT ALCALA MD 05/10/24 Additional Instructions: FOLLOW-UP WITH PRIMARY CARE PROVIDER IN 1 TO 2 DAYS. TAKE MEDICATIONS DIRECTED HERE IN THE EMERGENCY ROOM. OKAY TO CONTINUE HOME MEDICATIONS UNLESS OTHERWISE DISCUSSED DURING YOUR VISIT IN THE EMERGENCY ROOM TODAY. RETURN TO YOUR NEAREST EMERGENCY ROOM IF SYMPTOMS WORSEN OR IF THERE IS NO IMPROVEMENT. C ALL 911 IF YOU NEED IMMEDIATE ASSISTANCE. TAKE TYLENOL [id number] NEEDED AND IF NO CONTRAINDICATIONS ARE PRESENT. INCREASE ORAL HYDRATION. A WOUND CULTURE OR URINE CULTURE WAS ORDERED HERE IN THE EMERGENCY ROOM DEPARTMENT PLEASE FOLLOW-UP WITH PRIMARY CARE PROVIDER AND ADVISE THEM TO GET REPEAT PORTS FROM OUR FACILITY. IF YOU HAD ANY COLLINS WRAP/SPLINTS THAT WERE APPLIED HERE, PLEASE DO NOT REMOVE THEM UNTIL YOU SEE YOUR PRIMARY CARE OR SPECIALTY. Referrals: Referrals: DIANA ZUNIGA MD (PCP) Time of Disposition: 14:44 ALBERT ALCALA MD May 10, 2024 13:27
[2024-05-10] MEDS ORDERED: CEPH500B PO (14:45)
[2024-05-10] MEDS ORDERED: DICL20GE TP (14:45)
== END 2024-05-10 15:06 | disposition home or self-care (01) ==
LOC: EDH 10:34
DX: S76.012A Strain of muscle, fascia and tendon of left hip, initial encounter (principal); S50.312A Abrasion of left elbow, initial encounter; E11.9 Type 2 diabetes mellitus without complications; E78.00 Pure hypercholesterolemia, unspecified; I10 Essential (primary) hypertension; M19.90 Unspecified osteoarthritis, unspecified site; Z79.82 Long term (current) use of aspirin; Z79.899 Other long term (current) drug therapy; Z88.5 Allergy status to narcotic agent; Z90.710 Acquired absence of both cervix and uterus; Z95.1 Presence of aortocoronary bypass graft; Z95.5 Presence of coronary angioplasty implant and graft; Z96.643 Presence of artificial hip joint, bilateral; W18.49XA Other slipping, tripping and stumbling without falling, initial encounter; Y93.01 Activity, walking, marching and hiking; Y92.89 Other specified places as the place of occurrence of the external cause; Y99.8 Other external cause status
CPT/HCPCS: 73080; 73502; 99284

== ENCOUNTER 2024-09-26 18:20 | Emergency (ER) | payer MEDICARE ==
[~2024-09-26] VITALS: Ht 172.7 cm; Wt 59.9 kg
[~2024-09-26 18:20] MED LIST changes: +CEPH500B PO; +DICL20GE TP
--- NOTE | 2024-09-26 18:30 | ERN ---
ED Note History of Present Illness Stated Complaint: FALL Time Seen by MD: 18:21 Time Seen by Midlevel: 18:22 Dictation: Ms. Cabral is a 83-year-old female with history of CAD/CABG, hypertension, hyperlipidemia, type 2 diabetes, Parkinson's disease, GERD, and anxiety who was transported via EMS to the emergency department this evening for evaluation after a fall. It was repoted that approximately 1 hour ago she fell at home. She states she was leaning forward to pick something up and then lost her balance and became dizzy. She then fell back striking her head on concrete. She denies having + LOC and states she takes no anticoagulants. She complains of posterior headache and scalp hematoma. She states that initially she had some left lateral neck pain but now resolved. Denies recent illness, fever, chills, shortness of breath, cough, chest pain, palpitations, edema, abdominal pain, nausea, vomiting, diarrhea, melena, hematochezia, hematemesis, constipation, dysuria, seizure, or focal weakness/paresthesia. Allergies: Coded Allergies: No Known Drug Allergies (Verified Allergy, Unknown, 06/08/14) codeine (Unverified Allergy, Unknown, 02/17/22) Home Meds Active Scripts Diclofenac Sodium (Voltaren Arthritis Pain) 1 % Gel..gram., 4 GM TP BID for 7 Days, #1 TUBE Prov:ALBERT ALCALA MD 05/10/24 Cephalexin Monohydrate (Keflex) 500 Mg Cap, 1 CAP PO TID for 10 Days, #30 CAP 0 Refills Prov:ALBERT ALCALA MD 05/10/24 Reported Medications Amlodipine Besylate (Amlodipine Besylate) 2.5 Mg Tablet, 2.5 MG PO DAILY, TAB 09/27/22 Metoprolol Succinate (Metoprolol Succinate) 25 Mg Tab.er.24h, 25 MG PO HS, TAB 09/27/22 Zonisamide (Zonisamide) 25 Mg Capsule, 25 MG PO BID, CAP 09/27/22 Rotigotine (Neupro) 1 Each Patch.td24, 1 EACH TD DAILY 09/27/22 Nitroglycerin (Nitroglycerin) 0.4 Mg Tab.subl, 0.4 MG SL AD, TAB.SL 09/27/22 Pantoprazole Sodium (Pantoprazole Sodium) 40 Mg Tablet.dr, 40 MG PO DAILY, TAB 02/17/22 Famotidine (Famotidine) 20 Mg Tablet, 20 MG PO DAILY PRN for INDIGESTION, TAB 02/17/22 Ezetimibe (Ezetimibe) 10 Mg Tablet, 10 MG PO DAILY, TAB 02/17/22 Aspirin (Aspirin) 81 Mg Tab.chew, 81 MG PO DAILY, TAB.CHEW 02/17/22 Carbidopa/Levodopa (Carbidopa-Levodopa 25-100 Tab) 1 Each Tablet, 1 EACH PO QID, TAB 12/11/19 Past Medical History Past Medical History: Anxiety, Diabetes-Type II, High Cholesterol, Heart Disease, Hypertension, Other Additional Past Medical Hx: PARKINSON Surgical History: Hysterectomy, CABG, Other Surgical History Other: X3 CARDIAC STENTS PSYCH History: no pertinent psych hx Family History: CAD Social History: Negative, Lives with family History: Not Applicable RN Note Reviewed/Agreed w/PFSH: Yes Review of System Dictation REVIEW OF SYSTEMS: CONSTITUTIONAL: Patient denies fevers, chills, sweats and weight changes. EYES: Patient denies any visual symptoms. EARS, NOSE, AND THROAT: No difficulties with hearing. No symptoms of rhinitis or sore throat. CARDIOVASCULAR: Patient denies chest pains, palpitations, orthopnea and paroxysmal nocturnal dyspnea. RESPIRATORY: No dyspnea on exertion, no wheezing or cough. GI: No nausea, vomiting, diarrhea, constipation, abdominal pain, hematochezia or melena. : No urinary hesitancy or dribbling. No nocturia or urinary frequency. No abnormal urethral discharge. MUSCULOSKELETAL: Reports left lateral neck pain NEUROLOGIC: No chronic headaches, no seizures. Patient denies numbness, tingling or weakness. Reported posterior headache. Reports hematoma to scalp. PSYCHIATRIC: Patient denies problems with mood disturbance. No problems with anxiety. ENDOCRINE: No excessive urination or excessive thirst. DERMATOLOGIC: Patient denies any rashes or skin changes. Initial Vital Sign VS Vital Signs Date Time Temp Pulse Resp B/P (MAP) Pulse Ox O2 Delivery O2 Flow Rate FiO2 09/26/24 18:28 99.1 61 17 189/98 95 Room Air 0 09/26/24 18:53 21 Physical Exam Dictation Vital signs: Reviewed. Temperature 99.1. Constitutional: No acute distress. Non-toxic appearing. Calm/pleasant Head/Face: Localized hematoma over the left posterior scalp measuring approximately 4 cm, mildly tender to palpation, without overlying skin breakdown or active bleeding. No signs of fluctuation, crepitus, or surrounding erythema. No step-offs or palpable skull deformities noted Eyes: Periorbital areas with no swelling, redness, or edema. Lids and lashes are normal. Conjunctival injection is absent. Sclera anicteric. Pupils equal, round, reactive to light. ENT: Pinnas intact and no signs of trauma or erythema. Ear canals clear and no discharge. TMs no erythema. No nasal discharge or bleeding noted. Oropharynx with no exudate, redness, swelling, masses, exudates, or evidence of obstruction. Uvula midline. Mucous membranes moist. Neck: Trachea midline, no masses palpated, and no cervical lymphadenopathy. No swelling. Supple, full range of motion. Chest/Axilla: No tenderness, no crepitus, no paradoxical movement, no retractions. Cardiovascular: Regular rate, regular rhythm, no murmur, no gallops. Symmetric pulses. No peripheral edema. Hypertensive blood pressure 189/98 pars Respiratory: Respirations even and unlabored. Lung sounds clear; no wheezes, rales or rhonchi. Room air SpO2 95%. Gastrointestinal: Inspection is normal. No distention is appreciated. Bowel sounds are normal. No mass or organomegaly . There is no tenderness. No rebound. No rigidity. No voluntary or involuntary guarding. No Lockett's sign. Neurological: Normal speech, gross motor function intact, gross sensory function intact. No focal weakness/Paresthesia. No tremor. Musculoskeletal/Extremities: All extremities have full range of motion, no pain or tenderness on palpation. Symmetric pulses. Integumentary: Intact. Skin is normal color, warm and dry. Cap refill less than 3 seconds. Results (Laboratory/Radiology) Laboratory/Radiology Laboratory Tests Test 09/26/24 18:36 09/26/24 20:50 White Blood Count 7.9 K/uL (4.8-10.8) Red Blood Count 4.54 MIL/uL (4.00-5.50) Hemoglobin 12.4 g/dL (12.0-16.0) Hematocrit 39.0 % (36-48) Mean Corpuscular Volume 85.9 fL (79-99) Mean Corpuscular Hemoglobin 27.3 pg (27.0-33.0) Mean Corpuscular Hemoglobin Concent 31.8 g/dL (32.0-36.0) L Red Cell Distribution Width 18.0 % (11.0-15.5) H Platelet Count 348 K/uL (130-400) Mean Platelet Volume 9.0 fL (7.5-10.5) Immature Granulocyte % (Auto) 0.5 % (0-1) Neutrophils (%) (Auto) 64.3 % (40.0-77.0) Lymphocytes (%) (Auto) 20.9 % (21.0-51.0) L Monocytes (%) (Auto) 9.5 % (3.0-13.0) Eosinophils (%) (Auto) 4.4 % (0.0-8.0) Basophils (%) (Auto) 0.4 % (0.0-5.0) Neutrophils # (Auto) 5.1 K/uL (1.8-7.7) Lymphocytes # (Auto) 1.7 K/uL (1.0-4.8) Monocytes # (Auto) 0.8 K/uL (0.1-1.0) Eosinophils # (Auto) 0.35 K/uL (0.00-0.70) Basophils # (Auto) 0.03 K/uL (0.00-0.20) Absolute Immature Granulocyte (auto 0.04 K/uL (0-1) Nucleated Red Blood Cells 0.0 % (0.0-0.19) Red Blood Cell Morphology See comments Sodium Level 140 mmol/L (136-145) Potassium Level 4.2 mmol/L (3.5-5.1) Chloride Level 106 mmol/L (101-111) Carbon Dioxide Level 22 mmol/L (21-32) Blood Urea Nitrogen 15 mg/dL (7-18) Creatinine 0.9 mg/dL (0.5-1.0) Glomerular Filtration Rate Calc 64 mL/min (>90) Random Glucose 175 mg/dL (70-105) H Total Calcium 9.3 mg/dL (8.5-10.1) Troponin I High Sensitivity 11 ng/L (4-50) Urine Color LIGHT-YELLOW (YELLOW) Urine Appearance CLEAR (CLEAR) Urine pH 6.5 (5.0-8.0) Urine Specific Fries 1.012 (1.001-1.031) Urine Protein NEGATIVE mg/dL (NEGATIVE) Urine Glucose (UA) NEGATIVE mg/dL (NEGATIVE) Urine Ketones NEGATIVE mg/dL (NEGATIVE) Urine Occult Blood NEGATIVE (NEGATIVE) Urine Nitrate NEGATIVE (NEGATIVE) Urine Bilirubin NEGATIVE mg/dL (NEGATIVE) Urine Urobilinogen 0.2 mg/dL (0.2-1.0) Urine Leukocyte Esterase 500 Elizabeth/uL (NEGATIVE) H Urine RBC 6-10 /HPF (0-1) H Urine WBC 26-50 /HPF (0-1) H Urine WBC Clumps (Auto) RARE /HPF (0-1) Urine Squamous Epithelial Cells RARE /HPF (0-2) Urine Other Crystals (Auto) 2 /HPF (None Seen) Urine Bacteria RARE /HPF (None Seen) Urine Yeast FEW /HPF (None Seen) Labs Reviewed?: Yes EKG Comment: EKG Interpretation: Time Reviewed: 1933 Ventricular rate: 57 bpm RI Interval: 158 ms QRS duration: [address] segment elevation or depression. Clinical impression: sinus bradycardia EKG Reviewed and interpreted by Dr. Wilhelm CT Scan Comment: ATIENT: SCOTT CABRAL MR#: [id number] : 1940 SEX: F AGE: 83 LOCATION: [facility] ORDER 25 STATUS: [facility] REPORT#: [id number] SERVICE 24 REASON: fall, struck head on concrete ORDERING PHYSICIAN: LUIS ARMSTRONG NP PROCEDURE: HEAD WO - CT HEAD/BRAIN W/O CONTRAST CT HEAD/BRAIN W/O CONTRAST CLINICAL HISTORY: fall, struck head on concrete COMPARISON: None TECHNIQUE: Multiple sequential axial images of the head were obtained from the base of the skull through vertex. CT was performed with one or more of the following dose reduction techniques: automated exposure control, adjustment of the mA and/or kV according to patient size, or use of iterative reconstruction technique FINDINGS: There is advanced small vessel disease and moderate atrophy. The orbital contents, paranasal sinuses and mastoid air cells are within normal limits. The calvarium is intact. There is small left occipital scalp hematoma or area of edema. IMPRESSION: Small left occipital scalp hematoma or area of edema with no underlying skull fracture or intracranial hemorrhage. DICTATED BY: LUIS MACIAS DO DATE: 09/26/241941 ELECTRONICALLY SIGNED BY: LUIS MACIAS DO DATE: 09/26/241946 PATIENT: SCOTT CABRAL MR#: [id number] : 1940 SEX: F AGE: 83 LOCATION: [facility] ORDER 25 STATUS: [facility] REPORT#: [id number] SERVICE 24 REASON: fall, struck head on concrete ORDERING PHYSICIAN: LUIS ARMSTRONG NP PROCEDURE: C SPIN WO - CT CERVICAL SPINE W/O CONTRAST CT CERVICAL SPINE W/O CONTRAST CLINICAL HISTORY: fall, struck head on concrete COMPARISON: None TECHNIQUE: Sequential axial images of cervical spine without contrast and with sagittal and coronal reconstructions. CT was performed with one or more of the following dose reduction techniques: automated exposure control, adjustment of the mA and/or kV according to patient size, or use of iterative reconstruction technique FINDINGS: There is change from prior anterior cervical spinal fusion from C4 through C7 with plate and fully threaded screws. There is also disc replacement to the surgical bed. The dense appears intact. There is no identified acute fracture or obvious abnormality. The precervical soft tissues appear unremarkable. Note is made of hypertrophic degenerative change of the posterior articulating facets. IMPRESSION: There are no acute findings. DICTATED BY: LUIS MACIAS DO DATE: 09/26/241937 ELECTRONICALLY SIGNED BY: LUIS MACIAS DO DATE: 09/26/241941 ED Course ED Course Orders Procedure Category Date Status Time 12 Lead Ekg Tracing- EKG 09/26/24 Logged Technical 18:25 Cbc With Differential LAB 09/26/24 Complete 18:25 Basic Metabolic Panel LAB 09/26/24 Complete 18:25 Troponin I High LAB 09/26/24 Complete Sensitivity 18:25 Urinalysis Profile LAB 09/26/24 Complete 18:25 Ct Head/Brain W/O CT 09/26/24 Resulted Contrast 18:25 Ct Cervical Spine W/O CT 09/26/24 Resulted Contrast 18:25 Apply Ice Pack To: CPOE 09/26/24 Transmitted (Er) 18:49 Culture Urine CARMELA 5/31/25 In Process 21:00 Labetalol 20mg Syg PHA 09/26/24 Complete (Trandate 20mg Syg) 21:30 Current Medications Medications (Trade) Dose Ordered Sig/Faraz Route PRN Reason Start Time Stop Time Status Last Admin Dose Admin Labetalol HCl (TRANdate 20MG SYG) 10 mg ONCE ONCE IV 09/26/24 21:30 09/26/24 21:31 DC 09/26/24 21:32 Vital Signs Date Time Temp Pulse Resp B/P (MAP) Pulse Ox O2 Delivery O2 Flow Rate FiO2 09/26/24 21:32 62 201/73 09/26/24 21:07 98.4 60 19 208/73 95 Room Air* 0 21 09/26/24 20:00 98.4 64 20 172/88 97 Room Air* 0 21 09/26/24 18:53 98.8 56 23 170/80 97 Room Air* 0 21 09/26/24 18:28 99.1 61 17 189/98 95 Room Air 0 Patient remains alert and oriented; GCS 15. Twelve lead EKG reflects a sinus rhythm without ST elevation or depression. Parker CT Head Rule risk moderate. STAT noncontrast CT scan of the brain and cervical spine with no acute findings. Noted hypertension with systolic blood pressure 170-200; reports missing dose antihypertensive. She received Labetalol IV and BP trending down. Laboratory findings as noted below. No elevation of WBCs. H&H are stable. Glucose 175. Troponin is negative. UA cloudy;+ leukocyte esterase, rare bacteria, and UWBC 26-50. UCX pending. She was up to bathroom ambulating with steady gait. She denies having headache, neck pain or dizziness. Her son is present and states he will be able to stay in her home with her tonight. Medical Decision Making MDM MDM: Differential diagnosis: Intracerebral hemorrhage, skull fracture, cardiac arrhythmia, UTI, electrolyte derangement, anemia Rationale: Tests considered and ordered secondary to shared decision making include: EKG, labs, CTs Previous outside records reviewed: Old ER visits. Risk of complication and/or morbidity or mortality of patient management: None Medications-Per medication reconciliation Need for hospitalization: Patient does not meet criteria for hospitalization. Need for emergency major/minor surgery: No There are no social concerns with this patient. Prescription drug management: Cephalexin Prescriptions will include symptomatic care Patient's prior external medical records from other ER visits were reviewed by me as indicated. Prior testing and results from previous visits were reviewed. Prior tests were taken into account with medical decision making and resource u tilization, independent historian/historians were used to obtain complete medical history. I independently interpreted the test that were performed, results were reviewed by me and considered findings on radiology if ordered. Medical management and examination interpretation discussions were had by me with other qualified healthcare professionals as indicated for the patient's ca re. DX & DISP Disposition: Discharge Departure Impression: Primary Impression: Hematoma of occipital surface of head Additional Impressions: Closed head injury, Fall, UTI (urinary tract infection) Condition: Stable Scripts Cephalexin (Cephalexin) 500 Mg Tablet 1 TAB PO BID for 10 Days, #20 TAB 0 Refills Prov: LUIS ARMSTRONG NP 09/26/24 Additional Instructions: Rest. Drink plenty of fluids. Continue antibiotic with cephalexin twice daily for the next 10 days. Avoid falls; use your walker. Avoid getting up from sitting or lying position quickly. You should have someone stay with you tonight. Referrals: DIANA ZUNIGA MD (PCP) Time of Disposition: 21:51 LUIS ARMSTRONG RENDERER September 26, 2024 18:29
[2024-09-26 18:41] LABS: BASOPHILS # (AUTO) 0.03 K/uL (0.00-0.20); BASOPHILS % (AUTO) 0.4 % (0.0-5.0); EOSINOPHILS # (AUTO) 0.35 K/uL (0.00-0.70); EOSINOPHILS % (AUTO) 4.4 % (0.0-8.0); IMMATURE GRANULOCYTE ABSOLUTE 0.04 K/uL (0-1); LYMPHOCYTES # (AUTO) 1.7 K/uL (1.0-4.8); LYMPHOCYTES % (AUTO) 20.9 % (21.0-51.0); MEAN CORPUSCULAR HEMOGLOBIN 27.3 pg (27.0-33.0); MEAN CORPUSCULAR HGB CONC 31.8 g/dL (32.0-36.0); MEAN CORPUSCULAR VOLUME 85.9 fL (79-99); MONOCYTES # (AUTO) 0.8 K/uL (0.1-1.0); MONOCYTES % (AUTO) 9.5 % (3.0-13.0); NEUTROPHILS # (AUTO) 5.1 K/uL (1.8-7.7); NEUTROPHILS % (AUTO) 64.3 % (40.0-77.0); PLATELET COUNT (AUTO) 348 K/uL (130-400); RED BLOOD CELL COUNT(AUTO) 4.54 MIL/uL (4.00-5.50); WHITE BLOOD COUNT (AUTO) 7.9 K/uL (4.8-10.8)
[2024-09-26 18:50] LABS: CREATININE 0.9 mg/dL (0.5-1.0); POTASSIUM 4.2 mmol/L (3.5-5.1)
--- NOTE | 2024-09-26 19:42 | HMCIMG ---
CT CERVICAL SPINE W/O CONTRAST CLINICAL HISTORY: fall, struck head on concrete COMPARISON: None TECHNIQUE: Sequential axial images of cervical spine without contrast and with sagittal and coronal reconstructions. CT was performed with one or more of the following dose reduction techniques: automated exposure control, adjustment of the mA and/or kV according to patient size, or use of iterative reconstruction technique FINDINGS: There is change from prior anterior cervical spinal fusion from C4 through C7 with plate and fully threaded screws. There is also disc replacement to the surgical bed. The dense appears intact. There is no identified acute fracture or obvious abnormality. The precervical soft tissues appear unremarkable. Note is made of hypertrophic degenerative change of the posterior articulating facets. IMPRESSION: There are no acute findings.
--- NOTE | 2024-09-26 19:47 | HMCIMG ---
CT HEAD/BRAIN W/O CONTRAST CLINICAL HISTORY: fall, struck head on concrete COMPARISON: None TECHNIQUE: Multiple sequential axial images of the head were obtained from the base of the skull through vertex. CT was performed with one or more of the following dose reduction techniques: automated exposure control, adjustment of the mA and/or kV according to patient size, or use of iterative reconstruction technique FINDINGS: There is advanced small vessel disease and moderate atrophy. The orbital contents, paranasal sinuses and mastoid air cells are within normal limits. The calvarium is intact. There is small left occipital scalp hematoma or area of edema. IMPRESSION: Small left occipital scalp hematoma or area of edema with no underlying skull fracture or intracranial hemorrhage.
[2024-09-26 20:59] LABS: ADD UA MICROSCOPIC YES; APPEARANCE,URINE CLEAR (CLEAR); BILIRUBIN,URINE NEGATIVE (NEGATIVE); COLOR,URINE LIGHT-YELLOW (YELLOW); GLUCOSE, URINE (UA) NEGATIVE (NEGATIVE); KETONES,URINE NEGATIVE (NEGATIVE); LEUKOCYTE ESTERASE ,URINE 500 Leu/uL (NEGATIVE); NITRATE,URINE NEGATIVE (NEGATIVE); OCCULT BLOOD,URINE NEGATIVE (NEGATIVE); PH,URINE 6.5 (5.0-8.0); PROTEIN,URINE NEGATIVE (NEGATIVE); UROBILINOGEN,URINE 0.2 mg/dL (0.2-1.0)
[2024-09-26 21:04] LABS: BACTERIA,URINE RARE /HPF (None Seen); SQUAMOUS EPITHELIAL CELL,UR RARE /HPF (0-2); UNCLASSIFIED CRYSTAL 2 /HPF (None Seen); WBC CLUMP RARE /HPF (0-1); WBC,URINE 26-50 /HPF (0-1); YEAST,URINE BUDDING FEW /HPF (None Seen)
[2024-09-26] MEDS: LAbetaLOL 20MG SYG IV ONE ×2 (21:32→21:58)
[2024-09-26] MEDS ORDERED: CEPH500T PO (21:47)
[2024-09-26] MEDS: cefTRIAXone 1G VIAL IVPB ONE (21:57)
[2024-09-26 22:11] VITALS: BP 152/69; PULSE 55; RESP 17; TEMP 98.2; O2SAT 94
--- NOTE | 2024-09-27 12:51 | EKG ---
[facility] Test Date: 2024-09-26 Test Time: 19:34:23 Pat Name: SCOTT LARA Department: ED Room: Gender: F Education Rn: [id number] : 1940 Requested By: LUIS ARMSTRONG Order Number: [id number] Reading MD: Willie Yoon Measurements Intervals [place] Rate: 57 P: 33 CT: 158 QRS: 14 QRSD: 108 T: 114 QT: 492 QTc: 480 Interpretive Statements Sinus rhythm Low voltage, extremity leads Probable anteroseptal infarct, old Compared to ECG 09/26/2022 18:54:21 No significant changes Electronically Signed On 09-28-2024 22:14:24 CDT by Willie Yoon Please click the below link to view image of tracing.
== END 2024-09-26 22:22 | disposition home or self-care (01) ==
LOC: EDH 18:20
DX: S00.03XA Contusion of scalp, initial encounter (principal); N39.0 Urinary tract infection, site not specified; E11.9 Type 2 diabetes mellitus without complications; E78.00 Pure hypercholesterolemia, unspecified; I10 Essential (primary) hypertension; Z79.1 Long term (current) use of non-steroidal anti-inflammatories (NSAID); Z79.82 Long term (current) use of aspirin; Z79.899 Other long term (current) drug therapy; Z88.5 Allergy status to narcotic agent; Z90.710 Acquired absence of both cervix and uterus; Z95.1 Presence of aortocoronary bypass graft; Z95.5 Presence of coronary angioplasty implant and graft; W18.09XA Striking against other object with subsequent fall, initial encounter; Y93.89 Activity, other specified; Y92.009 Unspecified place in unspecified non-institutional (private) residence as the place of occurrence of the external cause; Y99.8 Other external cause status
CPT/HCPCS: 99285; 70450; 96365; 96375; 84484; 80048; 85025; 87086; 81001; 36415; 72125; 93005; J0696

== ENCOUNTER 2025-03-13 11:47 | Emergency (ER) | payer MEDICARE ==
[~2025-03-13] VITALS: Ht 152.4 cm; Wt 59.0 kg
[~2025-03-13 11:47] MED LIST changes: +CEPH500T PO; -EZET10TA48 PO; +EZET10TA80 PO
[2025-03-13 11:53] VITALS: TEMP 97.1
--- NOTE | 2025-03-13 11:58 | ERN ---
General Chief Complaint: Mechanical Fall Stated Complaint: FALL Time Seen by MD: 11:53 History of Present Illness Initial Comments 84-year-old female here for evaluation of the shoulder and left hip pain status post fall yesterday. Patient states that she was using her walker when she slipped and fell on her left side while in the garden. No head trauma. No loss of consciousness. No blood thinner use. Patient is concerned as she was having more pain earlier today and thus decided to come to the emergency room for evaluation. Allergies: Coded Allergies: No Known Drug Allergies (Verified Allergy, Unknown, 06/08/14) codeine (Unverified Allergy, Unknown, 02/17/22) Home Meds Active Scripts Cephalexin (Cephalexin) 500 Mg Tablet, 1 TAB PO BID for 10 Days, #20 TAB 0 Refills Prov:LUIS ARMSTRONG DIRECTOR OF MANAGED CARE 09/26/24 Diclofenac Sodium (Voltaren Arthritis Pain) 1 % Gel..gram., 4 GM TP BID for 7 Days, #1 TUBE Prov:ALBERT ALCALA MD 05/10/24 Cephalexin Monohydrate (Keflex) 500 Mg Cap, 1 CAP PO TID for 10 Days, #30 CAP 0 Refills Prov:ALBERT ALCALA MD 05/10/24 Reported Medications Amlodipine Besylate (Amlodipine Besylate) 2.5 Mg Tablet, 2.5 MG PO DAILY, TAB 09/27/22 Metoprolol Succinate (Metoprolol Succinate) 25 Mg Tab.er.24h, 25 MG PO HS, TAB 09/27/22 Zonisamide (Zonisamide) 25 Mg Capsule, 25 MG PO BID, CAP 09/27/22 Rotigotine (Neupro) 1 Each Patch.td24, 1 EACH TD DAILY 09/27/22 Nitroglycerin (Nitroglycerin) 0.4 Mg Tab.subl, 0.4 MG SL AD, TAB.SL 09/27/22 Pantoprazole Sodium (Pantoprazole Sodium) 40 Mg Tablet.dr, 40 MG PO DAILY, TAB 02/17/22 Famotidine (Famotidine) 20 Mg Tablet, 20 MG PO DAILY PRN for INDIGESTION, TAB 02/17/22 Ezetimibe (Ezetimibe) 10 Mg Tablet, 10 MG PO DAILY, TAB 02/17/22 Aspirin (Aspirin) 81 Mg Tab.chew, 81 MG PO DAILY, TAB.CHEW 02/17/22 Carbidopa/Levodopa (Carbidopa-Levodopa 25-100 Tab) 1 Each Tablet, 1 EACH PO QID, TAB 12/11/19 Past Medical History Past Medical History: Hypertension Medical History Other: TRIPLE BYPASS Past Surgical History: Other, Bariatric Surgery Surgical History Other: X3 CARDIAC STENTS,BILATERAL HIP, R SHOULDER, L FEMUR FX, AORTIC VALVE REPA Family History Family History: CAD Social History Social History: Negative, Lives with family Female( History) History: Not Applicable Musculoskeletal: (+) joint pain, (+) muscle stiffness Physical Exam General Appearance: (+) no apparent distress Orientation: (+) alert, (+) oriented x 3 Eye: bilateral eye normal inspection, bilateral eye PERRL, bilateral eye EOMI Ear, Nose, Throat: (+) hearing grossly normal, (+) normal ENT inspection, (+) moist mucous membraine Neck: (+) normal inspection, (+) supple Respiratory: (+) chest non-tender, (+) lungs clear, (+) well ventilated Heart: (+) regular; (-) murmur Gastrointestinal: (+) soft, (+) non-tender Extremities Comment Left hip: Mild tenderness to palpation. Full range of motion but limited secondary to pain. Left shoulder mild tenderness to palpation MDM 84-year-old female here for evaluation of left shoulder and left hip pain secondary to fall. Patient well-appearing no acute distress. Vital signs stable. We will get x-ray to rule out pathology and likely discharge home. ED Course Orders Procedure Category Date Status Time Shoulder Comp 2+Vws Lt RAD 03/13/25 Resulted 11:54 Hip Unilat 2-3vw Left RAD 03/13/25 Resulted 11:54 Chest 1vw RAD 03/13/25 Resulted 12:42 Methocarbamol PHA 03/13/25 Complete (Methocarbamol) 13:00 Current Medications Medications (Trade) Dose Ordered Sig/Faraz Route PRN Reason Start Time Stop Time Status Last Admin Dose Admin Methocarbamol (methoCARBamol) 750 mg ONCE ONCE PO 03/13/25 13:00 03/13/25 13:01 DC 03/13/25 12:54 Vital Signs Date Time Temp Pulse Resp B/P (MAP) Pulse Ox O2 Delivery O2 Flow Rate FiO2 03/13/25 12:54 51 20 186/71 97 Room Air* 0 21 03/13/25 11:53 97.2 55 18 166/64 97 DX & DISP Disposition: Discharge Departure Impression: Primary Impression: Strain of left hip Additional Impressions: Fall, Left shoulder strain Condition: Stable Scripts Methocarbamol (Methocarbamol) 500 Mg Tablet 1 TAB PO TID for 7 Days, #21 TAB 0 Refills Prov: BAILEE GUILLEN MD 03/13/25 Referrals: DIANA ZUNIGA MD (PCP) BAILEE GUILLEN MD Mar 13, 2025 11:58
--- NOTE | 2025-03-13 12:56 | HMCIMG ---
EXAM: CR left shoulder, 2 View. CLINICAL HISTORY: fall, pain COMPARISON: None provided. FINDINGS: BONES: No acute fracture or aggressive appearing osseous lesion. JOINTS: No dislocation. The joint spaces are normal. SOFT TISSUES: The soft tissues are unremarkable. IMPRESSION: No acute abnormality evident on examination of the right shoulder. No acute fracture or dislocation. /[place]
--- NOTE | 2025-03-13 12:58 | HMCIMG ---
EXAM: CR left hip, 3 View. CLINICAL HISTORY: fall, pain COMPARISON: None provided. FINDINGS: Bilateral total hip joint replacements with hardware in near-anatomic alignment. Additional lateral plate affixed to the bone within the proximal left femur. There is no displaced acute fracture appreciated. Pedicle screws noted within the lower lumbar spine. 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 IMPRESSION: 1. No acute osseous injury. 2. Bilateral total hip arthroplasties and left proximal femur plate fixation in near-anatomic alignment. /[place]
--- NOTE | 2025-03-13 13:53 | HMCIMG ---
EXAM: CR Chest, 1 View. CLINICAL HISTORY: l sided chest pain s/p fall COMPARISON: None provided. FINDINGS: LUNGS: There is no mass, infiltrate, or acute pulmonary abnormality. Mild bibasilar atelectasis. PLEURAL SPACES: No pleural effusion or pneumothorax. MEDIASTINUM: Prior aortic valve replacement. Prior sternotomy. Heart size and pulmonary vessels are within normal limits. BONES: No acute osseous abnormality. IMPRESSION: No acute cardiopulmonary pathology is evident. /[place]
[2025-03-13] MEDS ORDERED: METH-811 PO (14:05)
[2025-03-13 14:24] VITALS: BP 177/72; PULSE 61; RESP 20; O2SAT 98
== END 2025-03-13 14:28 | disposition home or self-care (01) ==
LOC: EDH 11:47
DX: S46.912A Strain of unspecified muscle, fascia and tendon at shoulder and upper arm level, left arm, initial encounter (principal); S76.012A Strain of muscle, fascia and tendon of left hip, initial encounter; I10 Essential (primary) hypertension; Z79.1 Long term (current) use of non-steroidal anti-inflammatories (NSAID); Z79.82 Long term (current) use of aspirin; Z79.899 Other long term (current) drug therapy; Z88.5 Allergy status to narcotic agent; Z95.5 Presence of coronary angioplasty implant and graft; Z96.643 Presence of artificial hip joint, bilateral; W01.0XXA Fall on same level from slipping, tripping and stumbling without subsequent striking against object, initial encounter; Y93.01 Activity, walking, marching and hiking; Y92.89 Other specified places as the place of occurrence of the external cause; Y99.9 Unspecified external cause status
CPT/HCPCS: 71045; 73030; 73502; 99284